=== PATIENT | male | born 1985 | race Caucasian/White ===

== ENCOUNTER 2016-03-20 16:44 | Emergency (ER) | payer OTHER ==
[2016-03-20] MEDS ORDERED: IBUPROFEN 800 MG TABLET PO STA (17:01)
[2016-03-20] MEDS ORDERED: IBUPROFEN 800 MG TABLET PO ONE (17:01)
== END 2016-03-20 18:35 | disposition home or self-care (01) ==
DX: J06.9 Acute upper respiratory infection, unspecified (principal); B97.89 Other viral agents as the cause of diseases classified elsewhere; G62.9 Polyneuropathy, unspecified; F17.200 Nicotine dependence, unspecified, uncomplicated
CPT/HCPCS: 36415; 84443; 87275; 87276; 99283; A9270

== ENCOUNTER 2017-07-03 16:07 | Emergency (ER) | payer OTHER ==
[2017-07-03 16:17] VITALS: BP 154/102
[2017-07-03] MEDS ORDERED: KETOROLAC 60 MG/2 ML VIAL IVP STA (16:33)
--- NOTE | 2017-07-03 16:49 | ED Physician Documentation ---
History of Present Illness - Stated complaint Stated Complaint: SOA/BACK PAIN - Chief complaint Chief Complaint: Back Pain - History obtained from History obtained from: Patient - History of Present Illness Timing: Chronic Pain level max: 8 Pain level now: 8 Improved by: breathing shallow Worsened by: deep inspiration, feels like a pulling sensation - Additonal information Additional information: Patient is a 31-year-old male who presents to the emergency department with mid back pain today. Feels like his chronic back pain, but is worse with taking a breath. Took Motrin when he first awoke this morning without relief. He did have a recent plane ride approximately 1 month ago to [place]. No leg or calf pain. Pain is really only present with taking a deep breath. Review of Systems Ten Systems: 10 systems reviewed and negative Constitutional: denies: Fever, Chills Ears: denies: Ear pain Nose: denies: Rhinorrhea / runny nose, Congestion Throat: denies: Sore throat Cardiac: denies: Palpitations Respiratory: denies: Cough GI: denies: Abdominal Pain, Nausea, Vomiting, Diarrhea Skin: denies: Rash Musculoskeletal: denies: Neck pain, Back pain Neurologic: denies: Focal weakness, Numbness, Headache PD PAST MEDICAL HISTORY - Past Medical History Past Medical History: Yes Respiratory: Sleep apnea Psych: Depression - Past Surgical History Past Surgical History: No - Present Medications Home Medications: Ambulatory Orders Medication Instructions Recorded Confirmed Cyclobenzaprine [Flexeril] 10 mg PO TID PRN #20 tablet 07/03/17 Ibuprofen [Motrin] 800 mg PO Q8H PRN #30 tablet 07/03/17 - Allergies Allergies/Adverse Reactions: Allergies Allergy/AdvReac Type Severity Reaction Status Date / Time No Known Drug Allergies Allergy Verified 07/03/17 16:16 - Social History Does the pt smoke?: Yes Smoking Status: Current every day smoker Does the pt drink ETOH?: No Does the pt have substance abuse?: No PD ED PE NORMAL - Vitals Vital signs reviewed: Yes - General General: Alert and oriented X 3, No acute distress - HEENT HEENT: PERRL, Moist mucous membranes - Neck Neck: Supple, no meningeal sign - Cardiac Cardiac: RRR, Strong equal pulses - Respiratory Respiratory: No respiratory distress, Clear bilaterally - Abdomen Abdomen: Soft, Non tender, Non distended - Back Back: No spinal TTP, Other (TTP paraspinal low thoracic, no midline tenderness to palpation or percussion) - Derm Derm: Warm and dry - Extremities Extremities: No edema, No calf tenderness / cord - Neuro Neuro: Alert and oriented X 3 - Psych Psych: Normal mood, Normal affect Results - Vitals Vitals: Vital Signs - 24 hr 07/03/17 16:13 Temperature 36.5 C Heart Rate 99 Respiratory 14 Rate Blood Pressure 154/102 H O2 Saturation 98 Oxygen O2 Source Room air - EKG (time done) 1614 Rate: Rate (enter#) (83) Rhythm: NSR [place]: Normal Intervals: Normal NC QRS: Normal - Labs Labs: Laboratory Tests 07/03/17 07/03/17 07/03/17 16:45 16:45 16:45 WBC 8.1 RBC 4.78 Hgb 15.7 Hct 45.5 MCV 95.1 H MCH 32.8 H MCHC 34.5 RDW 13.1 Plt Count 163 MPV 8.9 Neut # 5.0 Lymph # 2.7 Mcmullen # 0.3 Eos # 0.1 Baso # 0.1 Absolute Nucleated RBC 0.00 Nucleated RBC % 0.0 D-Dimer < 200.0 L Sodium 138 Potassium 3.6 Chloride 105 Carbon Dioxide 25 Anion Gap 8.0 BUN 16 Creatinine 0.8 Estimated GFR (MDRD) 114 Glucose 119 H Calcium 9.2 Total Bilirubin 0.3 AST 18 ALT 15 Alkaline Phosphatase 72 Troponin I Total Protein 7.2 Albumin 4.6 Globulin 2.6 Albumin/Globulin Ratio 1.8 Lipase 29 07/03/17 16:45 WBC RBC Hgb Hct MCV MCH MCHC RDW Plt Count MPV Neut # Lymph # Mcmullen # Eos # Baso # Absolute Nucleated RBC Nucleated RBC % D-Dimer Sodium Potassium Chloride Carbon Dioxide Anion Gap BUN Creatinine Estimated GFR (MDRD) Glucose Calcium Total Bilirubin AST ALT Alkaline Phosphatase Troponin I < 0.04 Total Protein Albumin Globulin Albumin/Globulin Ratio Lipase - Rads (name of study) cxr Radiology: Prelim report reviewed, EMP read contemporaneously, See rad report ( normal) PD MEDICAL DECISION MAKING - ED course Complexity details: reviewed results, re-evaluated patient, considered differential (No ST elevation IA, no aortic dissection, no PE, no tension pneumothorax, no aortic aneurysm), d/w patient ED course: Patient is a 31-year-old male who presents to the emergency department with what appears to be a muscular strain of his back. No evidence of pulmonary embolus, aortic dissection. No evidence of aortic aneurysm. Normal x-ray. Normal EKG. Pain improved with Toradol. Will place on muscle relaxants and nonsteroidal anti-inflammatory medications for home. Patient counseled regarding signs and symptoms for which I believe and urgent re-evaluation would be necessary. Patient with good understanding of and agreement to plan and is comfortable going home at this time This document was made in part using voice recognition software. While efforts are made to proofread this document, sound alike and grammatical errors may occur. Departure - Departure Disposition: Home, Self Care Clinical Impression: Back strain Qualifiers: Encounter type: initial encounter Qualified Code(s): S39.012A - Strain of muscle, fascia and tendon of lower back, initial encounter Condition: Good Instructions: ED Spasm Back No Trauma Follow-Up: your,doctor in 1 week [Other] Prescriptions: Cyclobenzaprine [Flexeril] 10 mg PO TID PRN #20 tablet PRN Reason: Spasms Ibuprofen [Motrin] 800 mg PO Q8H PRN #30 tablet PRN Reason: PAIN &/OR FEVER Comments: Return if you worsen. This should improve over the next few days. Do not drive or operate heavy machinery while taking the Flexeril. Discharge Date/Time: 07/03/17 17:50
--- NOTE | 2017-07-03 16:50 | XRAY Report ---
EXAM: CHEST RADIOGRAPHY EXAM DATE: 07/03/2017 04:33 PM. CLINICAL HISTORY: Chest pain. COMPARISON: 01/31/2013. TECHNIQUE: 1 view. FINDINGS: Lungs/Pleura: No focal opacities evident. No pleural effusion. No pneumothorax. Mediastinum: Within exam limitations, the cardiomediastinal contour is normal. Other: None. IMPRESSION: No acute cardiopulmonary abnormality. [facility] Referring Provider Line: [phone] SITE ID: [id number]
[2017-07-03 17:02] LABS: BASOPHILS # (AUTO) 0.1 10^3/uL (0.0-0.1); BASOPHILS % (AUTO) 0.8 %; EOSINOPHILS # (AUTO) 0.1 10^3/uL (0.0-0.7); EOSINOPHILS % (AUTO) 1.3 %; HGB - HEMOGLOBIN 15.7 g/dL (14.0-18.0); LYMPHOCYTES # (AUTO) 2.7 10^3/uL (1.5-3.5); LYMPHOCYTES % (AUTO) 32.9 %; MEAN CORPUSCULAR HEMOGLOBIN 32.8 pg (27.0-31.0); MEAN CORPUSCULAR HGB CONC 34.5 g/dL (32.0-36.0); MEAN CORPUSCULAR VOLUME 95.1 fL (80.0-94.0); MEAN PLATELET VOLUME 8.9 fL (7.4-11.4); MONOCYTES # (AUTO) 0.3 10^3/uL (0.0-1.0); MONOCYTES % (AUTO) 3.9 %; NEUTROPHILS % (AUTO) 61.1 %; PLT - PLATELET COUNT 163 10^3/uL (130-450); RED BLOOD COUNT 4.78 10^6/uL (4.70-6.10); RED CELL DISTRIBUTION WIDTH 13.1 % (12.0-15.0); WHITE BLOOD COUNT 8.1 x10^3/uL (4.8-10.8)
[2017-07-03 17:20] LABS: ALBUMIN 4.6 g/dL (3.2-5.5); ALBUMIN/GLOBULIN RATIO 1.8 (1.0-2.2); BILIRUBIN,TOTAL 0.3 mg/dL (0.2-1.0); CALCIUM 9.2 mg/dL (8.5-10.3); CREATININE 0.8 mg/dL (0.6-1.2); TOTAL PROTEIN 7.2 g/dL (6.7-8.2)
== END 2017-07-03 17:50 | disposition home or self-care (01) ==
LOC: ED 16:07
DX: S39.012A Strain of muscle, fascia and tendon of lower back, initial encounter (principal); X58.XXXA Exposure to other specified factors, initial encounter; F17.200 Nicotine dependence, unspecified, uncomplicated
CPT/HCPCS: 36415; 71045; 80053; 83690; 84484; 85025; 85379; 93005; 96374; 99283; 99284